=== PATIENT | male | born 1965 | race Caucasian/White ===

== ENCOUNTER 2016-07-22 15:42 | Inpatient (IN) | payer SELFPAY ==
--- NOTE | ~2016-07-22 | OP ---
Record Of Operation [facility] [address] [place]. [address] NAME: KEVIN HERRERA : 61 STATUS : ADM IN PAT#: [id number] AGE: 51 ADM/REG DATE : 07/22/16 MR#: [id number] REPORT SERV DATE: 07/23/16 DICTATED BY: OMARI BRUNO DATE: 07/23/16 REPORT STATUS : Draft TRANSCRIBED BY: MODL DATE: 07/23/16 DATE OF PROCEDURE: 07/23/2016 PTCA REPORT PROCEDURE IN DETAIL: The patient was already prepped and draped and a 6-Ethiopian sheath was in place in the right femoral artery from preceding cardiac catheterization. Moderate IV sedation was given. A 6-Ethiopian VL4 coronary guiding catheter was advanced in the left coronary ostium. Left coronary artery injections confirmed the presence of a 90% stenosis in the mid left circumflex coronary artery. A 0.014 Luge guidewire was passed across the lesion and positioned distally in the vessel. The vessel was then dilated with a 2.75/10 cutting balloon at up to 15 atmospheres of pressure for 15 seconds in duration. A 3.0/16 Synergy stent was then deployed across the lesion at up to 15 atmospheres of pressure for 15 seconds in duration. Following removal of balloon and guidewire, final left coronary artery injection showed 0% residual stenosis at the site of stent implantation with SAHIL grade 3 distal flow. The guiding catheter was removed and the sheath was left in place. There were no apparent complications. TOTAL CONTRAST USED: 155 mL. TOTAL RADIATION EXPOSURE: 602 mGy. ESTIMATED BLOOD LOSS: No significant blood loss occurred. IMPRESSION: Successful cutting balloon PTCA and placement of drug-eluting stent in mid left circumflex coronary artery. YVETTE/ANURADHA Omari Bruno M.D., [place] / [id number] CC: Omari Bruno M.D., [place]
--- NOTE | ~2016-07-22 | OP ---
Record Of Operation [facility] [address] [place]. [address] NAME: KEVIN HERRERA : 61 STATUS : ADM IN PAT#: [id number] AGE: 51 ADM/REG DATE : 07/22/16 MR#: [id number] REPORT SERV DATE: 07/23/16 DICTATED BY: OMARI LAFLEUR DATE: 07/23/16 REPORT STATUS : Draft TRANSCRIBED BY: ANURADHA DATE: 07/23/16 DATE OF PROCEDURE: 07/23/2016 CARDIAC CATHETERIZATION REPORT INDICATION FOR THIS PROCEDURE: Subendocardial myocardial infarction. PROCEDURE IN DETAIL: The patient was prepped and draped in usual sterile fashion. Moderate IV sedation was administered. Adequate anesthesia was obtained over the right femoral vessels using lidocaine infiltration. Using the Seldinger technique, a 6-Peruvian sheath was placed in the right femoral artery. A 6 FR4 coronary catheter was advanced in the left coronary ostium. Left coronary injections were performed in multiple views. Left coronary catheter was exchanged for 6 FR4 coronary catheter, which was advanced to the right coronary ostium. Right coronary injections were then performed in the IRISH and DUBOSE views. The right coronary catheter was exchanged for 6-Peruvian pigtail catheter, which was advanced into the left ventricular cavity. Pressures were measured across the aortic valve and left ventricular angiogram was obtained in the DUBOSE projection. The pigtail catheter was removed over a guidewire and sheath was left in place in anticipation of subsequent angioplasty. There were no apparent complications. RESULTS: 1. Pressures: The left ventricular end-diastolic pressure was 18 mmHg. No gradient was present across the aortic valve. 2. Left ventricular angiogram: The left ventricle contracted normally with an estimated ejection fraction of 50%. 3. Coronary arteriograms: The left main coronary artery is normal. Left anterior descending coronary artery has widely patent stented segment in its proximal and midportion. The left circumflex coronary artery has a 90% mid vessel stenosis. The right coronary artery has a patent stented segment in its proximal and midportion. IMPRESSION: 1. Patent stents in LAD and RCA. 2. High-grade stenosis of mid left circumflex coronary artery. 3. Left ventricular ejection fraction in low range of normal. PLAN: Proceed with stenting of left circumflex coronary artery. YVETTE/ANURADHA Omari Lafleur M.D., [place] / [id number] [facility] [place] [address] [place]. [address] NAME: KEVIN HERRERA : 61 STATUS : ADM IN PAT#: [id number] AGE: 51 ADM/REG DATE : 07/22/16 MR#: [id number] REPORT SERV DATE: 07/23/16 DICTATED BY: OMARI LAFLEUR DATE: 07/23/16 REPORT STATUS : Draft TRANSCRIBED BY: ANURADHA DATE: 07/23/16 CC: Omari Lafleur M.D., [place]
--- NOTE | ~2016-07-22 | PRECARD ---
[facility] [address] [place]. [address] NAME: KEVIN HERRERA : 61 STATUS : ADM IN [facility]#: [id number] AGE: 51 ADM/REG DATE : 07/22/16 MR#: [id number] REPORT SERV DATE: 07/22/16 DICTATED BY: OMARI BRUNO DATE: 07/22/16 REPORT STATUS : Draft TRANSCRIBED BY: MODMika DATE: 07/22/16 DATE OF ADMISSION: 07/22/2016 HISTORY OF PRESENT ILLNESS: The patient is a 51-year-old white male, previously followed by . The patient had a stent with about a year ago and apparently had two stents around five years prior to that. 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 He states he has had progressive shortness of breath on exertion over the past year. The patient presented to the emergency room at [facility] where his initial troponin was found to be 0.07. Electrocardiogram showed sinus rhythm with poor R-wave progression and nonspecific ST-T changes. PAST MEDICAL HISTORY: Remarkable for coronary artery disease and hypertension, but the patient is taking no medications at this time. SOCIAL HISTORY: The patient does not smoke or abuse alcohol or caffeine. FAMILY HISTORY: Positive for coronary disease. REVIEW OF SYSTEMS: The patient denies cough, wheeze, sputum production, vomiting, diarrhea, or dysuria. PHYSICAL EXAMINATION: VITAL SIGNS: Blood pressure is 150/80, heart rate is 70 and regular, respirations 16 and unlabored. HEENT: Unremarkable. NECK: Shows no jugular venous distention with good carotid upstroke and no bruit. CHEST: Clear. CARDIOVASCULAR: The PMI is not displaced. S1 is normal. S2 is narrowly split. No gallop is present. ABDOMEN: Soft, nontender with normal bowel sounds. EXTREMITIES: Show no cyanosis, clubbing, or edema. SKIN: Warm and dry with no pallor or icterus. NEURO/PSYCH: The patient is oriented x3 with appropriate affect. IMPRESSION: 1. Acute coronary syndrome. 2. History of multiple stents. 3. Noncompliant with medications. PLAN: 1. Admit to monitor bed on routine acute coronary syndrome protocol and IV heparin. 2. We will plan cardiac catheterization. [facility] [address] [facility] [address] [place]. [address] NAME: KEVIN HERRERA : 61 STATUS : ADM IN PAT#: [id number] AGE: 51 ADM/REG DATE : 07/22/16 MR#: [id number] REPORT SERV DATE: 07/22/16 DICTATED BY: OMARI BRUNO DATE: 07/22/16 REPORT STATUS : Draft TRANSCRIBED BY: ANURADHA DATE: 07/22/16 YVETTE/ANURADHA Omari Bruno M.D., [place] / [id number] CC: Omari Bruno M.D., [place]
[2016-07-22 16:28] LABS: BASOPHILS 0.3 %; BASOPHILS ABSOLUTE 0.05 10/3/uL (0.0-0.16); EOSINOPHILS 0.8 %; EOSINOPHILS ABSOLUTE 0.14 10/3/uL (0.0-0.53); ER CBC TAT 0 Hrs 08 Mins; HEMOGLOBIN 15.2 g/dL (13.6-17.8); IMMATURE GRANULOCYTES 0.4 %; IMMATURE GRANULOCYTES ABSOLUTE 0.07 10/3/uL (0.0-0.11); LYMPHOCYTES 13.9 %; LYMPHOCYTES ABSOLUTE 2.32 10/3/uL (0.67-4.30); MANUAL DIFF NO %; MEAN CORPUS HGB CONC 35.3 g/dL (32.0-36.0); MEAN CORPUSCULAR HEMOGLOB 30.6 pg (26.0-34.0); MEAN CORPUSCULAR VOLUME 86.5 fL (80-100); MEAN PLATELET VOLUME 11.4 fL (9.2-13.0); MONOCYTES 6.1 %; MONOCYTES ABSOLUTE 1.02 10/3/uL (0.21-1.20); NEUTROPHILS 78.5 %; NEUTROPHILS ABSOLUTE 13.14 10/3/uL (2.02-8.40); PLATELET COUNT 220 10/3/uL (150-400); RBC DISTRIBUTION WIDTH 13.3 % (12.0-16.0); RED CELL COUNT 4.97 10/6/uL (4.7-6.1); WHITE BLOOD CELLS 16.7 10/3/uL (4.5-10.5)
[2016-07-22 16:33] LABS: INTERNATIONAL NORMAL RATI 1.1 UNITS (-); PROTIME (NOT ORD) 13.9 SEC (12.0-14.5)
[2016-07-22] MEDS ORDERED: ASAB PO (16:37)
[2016-07-22] MEDS ORDERED: NITROGLYCERIN PO (16:38)
[2016-07-22] MEDS ORDERED: ADVIL PO (16:40)
[2016-07-22 16:47] LABS: BUN (BLOOD UREA NITROGEN) 18 MG/DL (6-23); CALCIUM, SERUM 9.4 MG/DL (8.5-10.4); CHLORIDE, SERUM 110 MMOL/L (96-112); CO2 (CARBON DIOXIDE) 22 MMOL/L (24-34); GFR AFRICAN AMERICAN 43 ML/MIN (>=60); GFR NON AFRICAN AMERICAN 37 ML/MIN (>=60); GLUCOSE, SERUM 132 MG/DL (60-99); SODIUM, SERUM 140 MMOL/L (135-148)
[2016-07-22 16:49] LABS: CHEST PAIN PROFILE TAT 0 Hrs 29 Mins; TROPONIN I 0.07 NG/ML (<0.05)
[2016-07-23 05:17] LABS: BASOPHILS 0.3 %; BASOPHILS ABSOLUTE 0.03 10/3/uL (0.0-0.16); EOSINOPHILS 0.7 %; EOSINOPHILS ABSOLUTE 0.08 10/3/uL (0.0-0.53); HEMATOCRIT 42.2 % (40.0-51.0); HEMOGLOBIN 14.7 g/dL (13.6-17.8); IMMATURE GRANULOCYTES 0.2 %; IMMATURE GRANULOCYTES ABSOLUTE 0.02 10/3/uL (0.0-0.11); LYMPHOCYTES ABSOLUTE 2.76 10/3/uL (0.67-4.30); MANUAL DIFF NO %; MEAN CORPUS HGB CONC 34.8 g/dL (32.0-36.0); MEAN CORPUSCULAR HEMOGLOB 30.2 pg (26.0-34.0); MEAN CORPUSCULAR VOLUME 86.7 fL (80-100); MONOCYTES ABSOLUTE 0.99 10/3/uL (0.21-1.20); NEUTROPHILS 64.8 %; NEUTROPHILS ABSOLUTE 7.15 10/3/uL (2.02-8.40); PLATELET COUNT 183 10/3/uL (150-400); RBC DISTRIBUTION WIDTH 13.3 % (12.0-16.0); RED CELL COUNT 4.87 10/6/uL (4.7-6.1)
[2016-07-23 05:31] LABS: BUN (BLOOD UREA NITROGEN) 14 MG/DL (6-23); CALCIUM, SERUM 9.1 MG/DL (8.5-10.4); CHLORIDE, SERUM 108 MMOL/L (96-112); CHOL/HDL RATIO(NOT ORDER) 5.4 (0-5); CHOLESTEROL 200 MG/DL (< 200); CO2 (CARBON DIOXIDE) 23 MMOL/L (24-34); CREATININE 1.52 MG/DL (0.70-1.30); GFR AFRICAN AMERICAN 60 ML/MIN (>=60); GFR NON AFRICAN AMERICAN 52 ML/MIN (>=60); GLUCOSE, SERUM 101 MG/DL (60-99); HDL CHOLESTEROL 37 MG/DL (> 39); LDL CHOLESTEROL 144 MG/DL (< 130); NON-HDL CHOLESTEROL 163 MG/DL (< 160); SGPT(ALT) 30 U/L (5-65); SODIUM, SERUM 141 MMOL/L (135-148); TRIGLYCERIDE 98 MG/DL (< 150)
[2016-07-24] MEDS ORDERED: LIPITOR40 PO (10:41)
[2016-07-24] MEDS ORDERED: LOP25 PO (10:41)
[2016-07-24] MEDS ORDERED: ALTA2.5 PO (10:42)
== END 2016-07-24 14:15 | disposition home or self-care (01) | DRG 247 ==
LOC: ER 15:42 → 7NO 18:23 → SSU2 07-23 12:01
PROVIDERS: Emergency Medicine
PROC: 027034Z Dilation of Coronary Artery, One Artery with Drug-eluting Intraluminal Device, Percutaneous Approach (ICD-10-PCS; principal; 2016-07-23)
PROC: 4A023N7 Measurement of Cardiac Sampling and Pressure, Left Heart, Percutaneous Approach (ICD-10-PCS; 2016-07-23)
PROC: B2151ZZ Fluoroscopy of Left Heart using Low Osmolar Contrast (ICD-10-PCS; 2016-07-23)
PROC: B2111ZZ Fluoroscopy of Multiple Coronary Arteries using Low Osmolar Contrast (ICD-10-PCS; 2016-07-23)
DX: I21.3 ST elevation (STEMI) myocardial infarction of unspecified site (principal); Z91.19 Patient's noncompliance with other medical treatment and regimen; I25.110 Atherosclerotic heart disease of native coronary artery with unstable angina pectoris; Z95.5 Presence of coronary angioplasty implant and graft
CPT/HCPCS: 71010; 80048; 80061; 83735; 84460; 84484; 85025; 85610; 85730; 93005; 93458; 96365; 96375; 99152; 99153; 99291; A9270-GY; C1725; C1769; C1874; C1887; C9600; J0583; J2250; J2405; J3010; Q9967